=== PATIENT | male | born 1970 | race American Indian/Alaskan Native ===

== ENCOUNTER 2018-06-26 10:26 | Outpatient (CLI) | payer OTHER ==
[2018-06-26 13:14] LABS: Basophils % (Auto) 0.6 % (0.0-1.8); Eosinophils # (Auto) 0.1 K/mm3 (0.0-0.4); Eosinophils % (Auto) 1.5 % (0.0-4.3); Hematocrit 47.2 % (35.5-45.6); Hemoglobin 15.3 gm/dl (11.8-15.2); Lymphocytes # (Auto) 1.9 K/mm3 (1.2-5.4); Lymphocytes % (Auto) 33.5 % (13.4-35.0); Mean Corpuscular HGB Conc 32 % (32-34); Mean Corpuscular Hemoglobin 27 pg (28-32); Mean Corpuscular Volume 84 fl (84-94); Monocytes # (Auto) 0.3 K/mm3 (0.0-0.8); Monocytes % (Auto) 5.4 % (0.0-7.3); Platelet Count 240 K/mm3 (140-440); Red Blood Count 5.59 M/mm3 (3.65-5.03); Red Cell Distribution Width 15.4 % (13.2-15.2)
[2018-06-26 13:21] LABS: Calcium, Urine 4.2 mg/dL (6.8-21.3); Chloride, Urine 143.9 mmolL (110-250); Potassium, Urine 43.47 mmol/L
[2018-06-26 13:22] LABS: Bilirubin,Urine NEG (Negative); Blood,Urine NEG (Negative); Color,Urine Yellow (Yellow); Protein,Urine <15 mg/dL mg/dL (Negative); Urobilinogen,Urine < 2.0 mg/dL (<2.0); WBC,Urine < 1.0 /HPF (0.0-6.0)
== END 2018-06-26 10:27 | disposition home or self-care (01) ==
LOC: LAB 10:26
PROVIDERS: ATTEND Internal Medicine
DX: I10 Essential (primary) hypertension (principal); E66.9 Obesity, unspecified; K21.9 Gastro-esophageal reflux disease without esophagitis; N52.9 Male erectile dysfunction, unspecified
CPT/HCPCS: 36415; 81001; 82436; 82570; 83036; 84133; 84300; 85025

== ENCOUNTER 2018-11-09 10:28 | Outpatient (CLI) | payer OTHER ==
[2018-11-09 12:37] LABS: Hematocrit 47.1 % (35.5-45.6); Hemoglobin 15.1 gm/dl (11.8-15.2); Mean Corpuscular HGB Conc 32 % (32-34); Mean Corpuscular Volume 86 fl (84-94); Platelet Count 241 K/mm3 (140-440); Red Blood Count 5.51 M/mm3 (3.65-5.03); Red Cell Distribution Width 14.7 % (13.2-15.2)
[2018-11-09 12:48] LABS: Alanine Aminotransferase 33 units/L (7-56); Albumin 4.5 g/dL (3.9-5); BUN/Creatinine Ratio 11; Blood Urea Nitrogen 12 mg/dL (9-20); Calcium 9.9 mg/dL (8.4-10.2); Hemolysis Index 0; LDL Cholesterol,Direct 127 mg/dL (50-130); Uric Acid 5.9 mg/dL (3.5-7.6)
[2018-11-09 12:57] LABS: Bacteria,Urine 1+ /HPF (Negative); Bilirubin,Urine NEG (Negative); Blood,Urine NEG (Negative); Color,Urine Yellow (Yellow); Mucus,Urine FEW /HPF; Protein,Urine <15 mg/dL mg/dL (Negative); Urobilinogen,Urine < 2.0 mg/dL (<2.0)
[2018-11-09 13:00] LABS: Chol/HDL Ratio 3.11 %; HDL Cholesterol 62 mg/dL (40-59)
[2018-11-12 08:14] LABS: Vitamin D, 25-OH, D2 <4 ng/mL
== END 2018-11-09 10:29 | disposition home or self-care (01) ==
LOC: LAB 10:28
PROVIDERS: ATTEND Internal Medicine
DX: Z13.1 Encounter for screening for diabetes mellitus (principal); Z13.220 Encounter for screening for lipoid disorders; Z13.21 Encounter for screening for nutritional disorder; Z12.5 Encounter for screening for malignant neoplasm of prostate
CPT/HCPCS: 36415; 80053; 80061; 81001; 82306; 82607; 83036; 84153; 84443; 84550; 85027

== ENCOUNTER 2019-05-10 11:28 | Outpatient (CLI) | payer OTHER ==
[2019-05-10 12:55] LABS: Basophils % (Auto) 0.5 % (0.0-1.8); Eosinophils # (Auto) 0.1 K/mm3 (0.0-0.4); Eosinophils % (Auto) 2.4 % (0.0-4.3); Hematocrit 45.4 % (35.5-45.6); Hemoglobin 14.9 gm/dl (11.8-15.2); Lymphocytes # (Auto) 1.6 K/mm3 (1.2-5.4); Lymphocytes % (Auto) 40.5 % (13.4-35.0); Mean Corpuscular HGB Conc 33 % (32-34); Mean Corpuscular Volume 84 fl (84-94); Monocytes # (Auto) 0.4 K/mm3 (0.0-0.8); Platelet Count 227 K/mm3 (140-440); Red Blood Count 5.42 M/mm3 (3.65-5.03)
[2019-05-10 13:15] LABS: Alanine Aminotransferase 21 units/L (7-56); Albumin 4.5 g/dL (3.9-5); BUN/Creatinine Ratio 12; Blood Urea Nitrogen 11 mg/dL (9-20); Calcium 9.3 mg/dL (8.4-10.2); Hemolysis Index 6
== END 2019-05-10 11:29 | disposition home or self-care (01) ==
LOC: LAB 11:28
PROVIDERS: ATTEND Internal Medicine
DX: Z01.810 Encounter for preprocedural cardiovascular examination (principal); R73.03 Prediabetes
CPT/HCPCS: 36415; 80053; 83036; 85025

== ENCOUNTER 2019-06-16 11:00 | Outpatient (CLI) | payer OTHER ==
[2019-06-16 11:33] LABS: Bilirubin,Urine NEG (Negative); Blood,Urine NEG (Negative); Color,Urine Yellow (Yellow); Mucus,Urine FEW /HPF; Protein,Urine <15 mg/dL mg/dL (Negative); Urobilinogen,Urine < 2.0 mg/dL (<2.0)
== END 2019-06-16 11:01 | disposition home or self-care (01) ==
LOC: LAB 11:00
PROVIDERS: ATTEND Internal Medicine
DX: N39.0 Urinary tract infection, site not specified (principal)
CPT/HCPCS: 81001